=== PATIENT | female | born 1960 | race Caucasian/White ===

== ENCOUNTER 2016-04-04 22:43 | Inpatient (IN) | payer OTHER ==
[~2016-04-04] VITALS: Ht 162.6 cm; Wt 61.7 kg
[2016-04-04 22:50] VITALS: BP 114/85; PULSE 86; RESP 14; O2SAT 95
--- NOTE | 2016-04-04 22:55 | ED.REPORT ---
HPI-General Illness Date of Service Apr 04, 2016 ED Provider: Nursing Notes Stated Complaint: POSS MEDICATION OVERDOSE Chief Complaint: Substance Abuse Allergies: Coded Allergies: No Known Allergies (Unverified , 04/04/16) General Time Seen by MD: 22:55 Physical Exam Vital Signs Vital Signs Date Time Temp Pulse Resp B/P Pulse Ox O2 Delivery O2 Flow Rate FiO2 04/04/16 22:50 37.0 86 14 114/85 95 Room Air Discharge & Departure Referrals: Paulino Velazco MD (PCP) Luis Yarbrough DO Apr 04, 2016 22:55 Joselin Bansal Apr 04, 2016 23:33
[2016-04-04] MEDS ORDERED: 0.9% Sodium Chloride 1,000 ML IV ONE (22:56)
--- NOTE | 2016-04-04 23:24 | ED.REPORT ---
HPI-Overdose/Alcohol Toxicity Date of Service Apr 04, 2016 ED Provider: Delfin Morse MD Patient is a 55 year old female who presents to the ED who presents to the ED with decreased level of consciousness after an intentional lorazepam overdose this evening, with last known normal at 1999. Patient was found by her at 2200 to have fallen out of bed onto the floor, drifting in and out of consciousness. She was incoherent and unable to ambulate on her own. The patient reported taking somewhere between 8-12mg of Lorazepam this evening enroute to the ED. On arrival to the ED the patient is very sedated and is unable to provide any additional history. Her family states that the patient has been stressed recently, due to conversations she has been having with her children. She apparently reported that she had no reason to live. However, she did not want to speak further about why she tried to commit suicide. Her family is not aware of any previous suicide attempts or psychiatric admissions. The patient has access to Lorazepam but does not have a access to any narcotic pain medications. The patient and her are currently staying with her niece, who is also present in the ED. Nursing Notes Stated Complaint: POSS MEDICATION OVERDOSE Chief Complaint: Substance Abuse Nursing Notes Reviewed: Yes Allergies: Coded Allergies: No Known Allergies (Unverified , 04/04/16) General Time Seen by Provider: 23:00 Chief Complaint Drug overdose, Suicidal attempt Modifying Factors: Intentional Hx Obtained From: Spouse Unable to Obtain Hx: Patient condition (sedated) Arrived By: Wheelchair Onset Occurred: 1 - 4 hours ago Symptom Duration: Since onset Recent Healthcare: No recent doctor visit, No recent hospitalization Similar Sx Previous: No Past Medical History Past Medical History kidney stones fibrocystic breasts Past Surgical History none reported Smoking History Unknown if Ever Smoker Social History Other Social History: Good social support, , Local resident Review of Systems Unable to Obtain ROS Patient condition (sedated) Physical Exam Initial Vital Signs Vital Signs (First) Date Time Temp Pulse Resp B/P Pulse Ox O2 Delivery O2 Flow Rate FiO2 04/04/16 22:50 37.0 86 14 114/85 95 Room Air Initial VS: Reviewed, Vital signs normal Neck: Supple, Non-tender, Full range of motion Extremities: Vascular intact, Neuro intact, No swelling Skin: Warm, Dry, No cyanosis General/Constitutional: No acute distress Alertness: Positive: Unresponsive Respiratory / Chest: Breath sounds NL, Breath sounds = bilat, No respiratory distress, No rales, No rhonchi, No wheezing moving air well Cardiovascular: Heart rate NL, Regular rhythm, Heart sounds NL, No murmurs Abdomen: Soft, Non-tender Mental Status: Positive: Pharmacologically sedated, Unresponsive Unable to Evaluate: Positive: Unresponsive Head / Eyes: Atraumatic, Normocephalic Pupils: Positive: Pinpoint ENT: Airway patent, Mucous membranes moist Interpretation & Diagnostics Interpretation & Diagnostics: Urine Tox Dip: Positive for benzodiazepines, all else negative. Lab Results Interpretation Result Diagram: 04/04/16 2338 04/04/16 2338 Test 04/04/16 23:38 White Blood Count 7.5th/mm3 (3.8-10.1) Red Blood Count 4.15mil/mm3 (3.90-5.20) Hemoglobin 12.5g/dL (12.0-15.6) Hematocrit 38.0% (35.0-46.0) Mean Corpuscular Volume 91.6fL (81-100) Mean Corpuscular Hemoglobin 30.1pg (27.0-35.0) Mean Corpuscular Hemoglobin Concent 32.9% (32.0-37.0) Red Cell Distribution Width 13.0% (12.3-15.4) Platelet Count 338bil/L (150-400) Neutrophils (%) (Auto) 51.7% (40-74) Lymphocytes (%) (Auto) 41.7% (14-46) Monocytes (%) (Auto) 4.8% (4-12) Eosinophils (%) (Auto) 1.2% (0-5) Basophils (%) (Auto) 0.5% (0-3) Sodium Level 139mEq/L (134-144) Potassium Level 3.7mEq/L (3.5-5.2) Chloride Level 106mEq/L (97-108) Carbon Dioxide Level 20mmol/L (18-29) Blood Urea Nitrogen 13mg/dL (6-24) Creatinine 0.55mg/dL (0.57-1.00) Estimat Glomerular Filtration Rate 164mL/min (>59) Glucose Level 110mg/dL (60-99) Calcium Level 8.9mg/dL (8.5-10.1) Total Bilirubin 0.2mg/dL (0.0-1.2) Aspartate Amino Transf (AST/SGOT) 18U/L (0-50) Alanine Aminotransferase (ALT/SGPT) 20U/L (0-32) Alkaline Phosphatase 71U/L (25-150) Total Protein 6.7g/dL (6.4-8.4) Albumin 3.7g/dL (3.4-5.0) Salicylates Level < 3.0ug/mL (30-250) Acetaminophen Level < 15.0ug/mL Rx (10-25) Alcohol, Quantitative 10mg/dL (0-10) Lab values outside NL range: no clinical significance. Lab Results Interpretation: No evidence of coingestions ECG Interpretation ECG Interpretation: Sinus rhythm, Rate 74 Time: 23:45 Interpreted by: ED physician Normal ECG Interpretation: No acute ischemic changes Re-Eval/Medical Decision Med Decision/Clinical Course 55-year-old who took 12-21 mg Ativan in apparent suicide attempt. There is no evidence of coingestions. She has a fluctuating level of consciousness but for the most part is soundly asleep with preserved reflexes and no evidence of apnea or desaturation. She will be admitted to [facility] by the hospitalist service. DCR evaluation prior to discharge. Source of Hx: Old records Re-Evaluation/Progress #1: Time of Eval: 23:07 Re-Evaluation/Progress Note: Patient is more responsive and opened her eyes. She is able to answer some questions. She denies taking any medications other than Lorazepam. She does not have any narcotic pain medications. Patient will not clarify why she tried to commit suicide tonight. Re-Evaluation/Progress #2: Time of Eval: 23:33 Re-Evaluation/Progress Note: Patient still appears sedated and now has pinpoint pupils again. Re-Evaluation/Progress #3: Time of Eval: 00:15 Re-Evaluation/Progress Note: Patient is still sedated with pinpoint pupils. She moaned while in the room. Re-Evaluation/Progress #4: Time of Eval: 01:21 Patient Status: Condition improved Re-Evaluation/Progress Note: Rechecked the patient, who remains stable. Patient will need another 6 hours of observation and the hospital does not have a monitered bed at this time. So will keep the patient in the ED. Once she has woken up she will be evaluated by a director of social services. Patient's family understands and agrees with this plan. All questions were addressed. Re-Evaluation/Progress #5: Time of Eval: 02:20 Re-Evaluation/Progress Note: Bed was obtained for the patient upstairs, she will be transported up to the 2nd floor. All questions were addressed. Consultation : Referral / Consult Name: Christin Kim DO Consulted With: Hospitalist Call Returned at: 02:16 Manager Psychology: Will see patient, Agrees with eval, Agrees with plan, Accepts admit Note: Spoke with Dr. Kim, hospitalist, who agrees to accept admit. Counseled Regarding: Diagnosis, Lab results, Need for admission Discharge & Departure Impression: Primary Impression: Intentional lorazepam overdose Encounter type: initial encounter Qualified Code: T42.4X2A - Poisoning by benzodiazepines, intentional self-harm, initial encounter Additional Impression: Decreased level of consciousness Disposition: ADMITTED TO HOSPITAL Discharge Condition All VS Reviewed: Yes Condition: Stable Referrals: Paulino Velazco MD (PCP) Crit Care Except Billable Proc Time Spent: 30-74 minutes Services Performed: Patient management by me, Time spent at bedside, Reviewing test results, Reviewing imaging, Discussing patient care, Documentation in record Scribe Attestation Portions of this note were transcribed by Joselin Bansal. I, Dr. Morse personally performed the history, physical exam and medical decision-making; I reviewed and confirmed the accuracy of the information in the transcribed note. Signed by: Talita Rainey, 04/05/2016 0255 copies to: Paulino Velazco MD, Howard L MD Apr 04, 2016 23:23 Joselin Bansal Apr 04, 2016 23:28
[2016-04-04 23:48] LABS: BASOPHILS % (AUTO) 0.5 % (0-3); EOSINOPHILS % (AUTO) 1.2 % (0-5); MONOCYTES % (AUTO) 4.8 % (4-12); Mean Corpuscular Hemoglobin 30.1 pg (27.0-35.0); Mean Corpuscular Volume 91.6 fL (81-100); NEUTROPHILS % (AUTO) 51.7 % (40-74); Platelet Count 338 bil/L (150-400)
[2016-04-05] VITALS (10 sets, daily range): BP systolic 103–118; BP diastolic 67–85; PULSE 62–86; RESP 14–18; O2SAT 94–97
[2016-04-05] MEDS ORDERED: Polyethylene Glycol (PEG) 17 Gm Powder PO PRN (02:20)
[2016-04-05] MEDS ORDERED: Ondansetron 2 mg/mL 2 mL Inj IVPUSH PRN (02:20)
[2016-04-05] MEDS ORDERED: Alum-Mag Hydrox-Simeth 30 mL Suspension PO PRN (02:20)
--- NOTE | 2016-04-05 05:00 | NUR ---
Admission Pt admitted for suicide attempt when she swallowed 8-12 tabs of ativan. She is sleepy. She does arouse to questions and answers them in full sentences. Cont pulse ox in place. 1:1 sitter at bedside. to stay the night Bed alarm in place No current needs at present. Respirations are regular with adequate depth. Dry cough at times noted Care ongoing
--- NOTE | 2016-04-05 05:27 | PCM.HPMED ---
Subjective Date of Service Apr 05, 2016 Primary Provider: Admitting Physician: Christin Kim DO Primary Care Physician: Isidro Attending Physician: Christin Kim DO Admit Status: From the Emergency Department Chief Complaint: Lorazepam overdose, intentional suicide attempt History of Present Illness: Patient is a 55 y/o F who presented to the ED with decreased level of consciousness after an intentional lorazepam overdose this evening. Patient reported that she had the lorazepam from an old previous script but had not been taking it regularly. Her last known normal at 199904/04/2016. Patient was found by her at 2200 to have fallen out of bed onto the floor, drifting in and out of consciousness. She was incoherent and unable to ambulate on her own. The patient reported taking somewhere between 8-12mg of Lorazepam. On arrival to the ED the patient is very sedated and is unable to provide any additional history. Her family states that the patient has been stressed recently, due to conversations she has been having with her children. She apparently reported that she had no reason to live. After being admitted patient discussed with resident physician how she was " tired of fighting". She says that she was "hoping that she would be in [place] with her grandma by now". When asked to clarify what she meant by feeling tired, patient responded by saying she was tired of dealing with her mom's codependent problems. During interview patient was drifting in and out of consciousness. Patient was very poor historian given her overdose state. Family is not aware of any previous suicide attempts or psychiatric admissions. The patient has access to Lorazepam but does not have a access to any narcotic pain medications. The patient and her are currently staying with her niece, who is also present in the ED. Patient refused to respond to whether or not she was having suicidal ideation. Patient was able to recall her medications when asked. In the ED vital signs were 36.6, pulse 80, pressure 113/68, respiration 17, pulse ox 97% on room air. Chemistry panel: Within normal limits Hemogram: Within normal limits Toxicology: Insignificant Review of Systems: A comprehensive review of systems was conducted and found to be negative except for that mentioned in history of present illness. Allergies Coded Allergies: No Known Allergies (Unverified , 04/04/16) Home Medications Venlafaxine 7.5 mg 3 daily Topamax 3.75 mg twice a day Recently completed a Z-Andrew [facility] kidney stones fibrocystic breasts Surgical History None reported Family History Mother reportedly suffered from codependency Social History Hx Alcohol Use: No Hx Substance Use: No Hx Tobacco Use: No Smoking Status: Unknown if Ever Smoker Living Arrangement: with Family () Exam Vital Signs Vital Sign - Last Date Time Temp Pulse Resp B/P Pulse Ox O2 Delivery O2 Flow Rate FiO2 04/05/16 03:49 36.6 80 17 113/68 97 Room Air Exam General: Sedated, slurring speech, dozing in and out during interview with intermittent levels of consciousness HEENT: NC/AT, eyes PERRLA, EOMI, neck supple no masses no adenopathy no JVD, throat noninjected no erythema Lungs: Bilateral rhonchi Heart: Regular rate and rhythm no murmurs Abdomen: Soft nontender nondistended no rebound no guarding Extremities: Warm, pulses symmetric bilaterally upper and lower extremity Skin: Dry, warm and intact Psychiatric: Flat affect, appears sedated likely secondary to overdose lorazepam , patient fixating on her mother's codependency problems, poor insight, appears depressed, Lab and Diagnostics Result Diagram: 04/04/16 2338 04/04/16 2338 Assessment & Plan This is a 55 y/o F who presented to the ED with decreased level of consciousness after an intentional lorazepam overdose this evening. Her last known normal at 199904/04/2016. The patient reported taking somewhere between 8 -12mg of Lorazepam this evening enroute to the ED. Patient was admitted to the hospital for intentional suicide attempt. In the ED vital signs were 36.6, pulse 80, pressure 113/68, respiration 17, pulse ox 97% on room air. # Intentional suicide attempt, acute, present on admission, active - Patient took 8-12 mg of lorazepam. Reportedly had no access to opiate medications. Patient refused to answer whether or not she was still suicidal, would not answer she had a plan. - Sitter at all times - Psychiatric consult when alert and able to discuss suicide attempt - TSH - support worker consult # Lorazepam overdose, present on admission, active -Secondary to #1 -Patient reportedly had access to her old lorazepam -Supportive care # Acute upper respiratory infection, Bronchitis, present on admission, active - Recently completed a Z-Andrew - Lung bilateral rhonchi - Mucinex - Tessalon - Pro calcitonin - May consider chest x-ray if patients has change in respiration status Chronic problems Patient home medications will need to be reconciled as patient is poor historian and reported medication dosages do not match up with known senior medical director dosages # Depression/anxiety -Reportedly takes venlafaxine # Migraine headaches -Reportedly takes Topamax in the morning and in the evening Disposition: Admitted to in patient service secondary to severity of presenting symptoms, treatment plan, complexity of clinical work up, and risk of adverse events. PCP: Was unable to recall her own primary care physician CODE STATUS: Full code Resuscitation Status: CPR: Attempt Resuscitation Attending Statement The patient was seen and examined together with house staff on 04/05/2016 and I have added additional information to the note above. James Granados DO Apr 05, 2016 04:06 Christin Kim DO Apr 05, 2016 05:57
--- NOTE | 2016-04-05 05:43 | NUR ---
Suicide precautions RN stated to pt, "I am so glad you are safe and alive. Pt responded, "I'm not so sure I am.." RN reiterated that there are many many people who are here to support her. Pt gave a half smile. Care ongoing.
--- NOTE | 2016-04-05 05:46 | NUR ---
MED REC NOT DONE! AWAITING LIST FROM SOFIA WINTERS
[2016-04-05 06:48] LABS: BASOPHILS % (AUTO) 0.5 % (0-3); EOSINOPHILS % (AUTO) 1.9 % (0-5); MONOCYTES % (AUTO) 3.9 % (4-12); Mean Corpuscular Hemoglobin 30.3 pg (27.0-35.0); Mean Corpuscular Volume 91.3 fL (81-100); NEUTROPHILS % (AUTO) 45.9 % (40-74); Platelet Count 320 bil/L (150-400)
[2016-04-05] MEDS ORDERED: VENL-57 PO (12:39)
[2016-04-05] MEDS ORDERED: TOPI-59 PO (12:40)
[2016-04-05] MEDS ORDERED: AMPH20TA5 PO (12:42)
--- NOTE | 2016-04-05 13:46 | PCM.PNMED ---
Subjective Date of Service Apr 05, 2016 Subjective she is more awake. She denies any pain cough or dyspnea. She had a cold for last 3 weeks and still has a mild persistent dry cough. No fevers or chills. No active rhinorrhea. She has no abdominal pain or anorexia nausea or diarrhea. She states she took lorazepam 1 mg tablets 20-30 pills last night with intention to kill herself. She notes one previous attempt distantly. When asked if she is still suicidal she states that she cannot say yes or now today. She did recently relocated from [place] and is staying with her significant other. Apparently they have been in the process of trying to reconstruct the relationship. Exam Vital Signs Vital Sign - Last Date Time Temp Pulse Resp B/P Pulse Ox O2 Delivery O2 Flow Rate FiO2 04/05/16 09:57 66 04/05/16 09:17 36.7 14 103/70 95 Room Air Intake and Output 04/04/16 04/04/16 04/05/16 Cumulative From/Thru 15:00 23:00 07:00 04/04/16 22:50 - 04/05/16 05:29 Intake Total 0 ml 0 ml Output Total 0 ml 0 ml Balance 0 ml 0 ml Intake Oral 0 ml 0 ml Output Urine Total 0 ml 0 ml # Bowel Movements 0 0 Exam [place] to 3, flat affect. Depressed in appearance Normal skull Anicteric sclerae. Neck supple. Lungs are clear left. Heart is regular without murmur. Abdomen is soft. Extremities are free of edema good pedal pulses. Multiple tattoos. IVs and Medications Medications Reviewed: Medications were reviewed in detail Lab and Diagnostics Result Diagram: 04/05/1628 04/05/16627 Assessment & Plan This is a 55 y/o F who presented to the ED with decreased level of consciousness after an intentional lorazepam overdose this evening. Her last known normal at 199904/04/2016. The patient reported taking somewhere between 8 -12mg of Lorazepam this evening enroute to the ED. Patient was admitted to the hospital for intentional suicide attempt. In the ED vital signs were 36.6, pulse 80, pressure 113/68, respiration 17, pulse ox 97% on room air. 1. Intentional suicide attempt, acute, present on admission, active - Patient took 8-12 mg of lorazepam. Reportedly had no access to opiate medications. Patient refused to answer whether or not she was still suicidal, would not answer she had a plan. - Sitter at all times - Psychiatric consult when alert and able to discuss suicide attempt - TSH - coal chute worker consult for mental health evaluation. The patient is medically clear as of 1300 on April 05. In her evaluation she will likely need psychiatric consultation for consideration of inpatient treatment of depression. Depending on the outcome of the social work mental health evaluation the patient will require a psychiatry consultation likely in the morning of April 06. 2. Lorazepam overdose, present on admission, active -Secondary to #1 -Patient reportedly had access to her old lorazepam -Supportive care, medically clear at this point. 3. Acute upper respiratory infection, Bronchitis, present on admission, active - Recently completed a Z-Andrew - Lung bilateral rhonchi - Mucinex - Tessalon - Pro calcitonin - May consider chest x-ray if patients has change in respiration status, will add a viral PCR. 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 PCP: Was unable to recall her own primary care physician CODE STATUS: Full code Pain Evaluation: Adequate Pain Control Resuscitation Status: CPR: Attempt Resuscitation Time spent 25 minutes Graham Engel MD Apr 05, 2016 13:46
--- NOTE | 2016-04-05 15:25 | NUR ---
Social Work: Attempted Mental Health Assessment Data & Assessment: Heat Treatment Technician attempted to meet with patient to complete Mental Health Assessment, but the patient was asleep and unable to answer Social Workers questions. Patients and daughter Nidia were at bedside. Patients stated that the patient has been in [place] since January and was planning to return to her sisters home but her sister notified her that she did not want her to return. Patients stated that the patient has been stating to him that she felt worthless and did not want to be here. Patients also reported that the patient got into an argument with her sister and daughters the night that she attempted to commit suicide. deli worker will attempt to complete mental health assessment with patient once she is awake. SW will continue to follow. Plan: SW will follow patient and complete mental health assessment once patient is able to stay awake and answer questions. Ivy Vance, WILL, ACM
--- NOTE | 2016-04-05 16:29 | NUR ---
Suicidal Thoughts Patient stated she took 20-30 lorazepam last night because she" was ready to say bye bye and end it all". When asked if she was still having suicidal thoughts she replied" oh yes definitely I will try again when I leave here." Patient is cooperative and pleasant. Sitter at bedside for patient safety.
[2016-04-06 05:08] VITALS: BP 108/73; PULSE 72; RESP 16; O2SAT 95
--- NOTE | 2016-04-06 06:34 | NUR ---
Suicide Precautions/ VSS/ No Tele/ 1:1 Sitter Pt states that she doesnt have a plan to hurt herself right now, but is still not happy with her current situation and is depressed. Pt very drowsy during the night, but easily arousable. VS stable and afebrile. No Tele. No c/o chest pain or other discomfort all night. Very unsteady on her feet, 1 person assist to the BSC. 1:1 sitter in room at bedside all night for safety, Joshua bed alarm activated also for safety.
[2016-04-06 08:38] VITALS: BP 94/61; PULSE 82; RESP 16; O2SAT 94
--- NOTE | 2016-04-06 12:31 | PCM.PNMED ---
Subjective Date of Service Apr 06, 2016 Subjective Patient was seen and examined at bedside. The patient currently states that she is not suicidal at this moment, but tends to hesitate when answering this question. Patient denies that she has a plan at this time. Overnight nursing reported that the patient was extremely lethargic. Exam Vital Signs Vital Sign - Last Date Time Temp Pulse Resp B/P Pulse Ox O2 Delivery O2 Flow Rate FiO2 04/06/16 08:38 37.2 82 16 94/61 94 Room Air Intake and Output 04/05/16 04/05/16 04/06/16 Cumulative From/Thru 15:00 23:00 07:00 04/04/16 22:50 - 04/06/16 06:09 Intake Total 100 ml 100 ml Output Total 400 ml 400 ml Balance -300 ml -300 ml Intake Oral 100 ml 100 ml Output Urine Total 400 ml 400 ml # Voids 1 1 # Bowel Movements 0 0 Exam Physical Exam: GEN: Patient was awake, alert, responding appropriately to questions HEENT: Pupils dilated but round equally reactive to light, EOMI, Neck soft supple, trachea midline, nomocephalic/atraumatic CV: +S1/S2, RRR, no murmurs auscultated Respiratory: CTAB, no wheezes, rales, rhonchi GI: +bowel sounds x4, soft, compressible, non TTP EXT: no c/c/e Neuro: CN II-XII grossly intact Psych: mood and affect were depressed IVs and Medications Medications Reviewed: Medications were reviewed in detail Medications Current Medications Al Hydrox/Mg Hydrox/Simethicone 30 ml Q6H PRN PO; Start 04/05/16 at 02:20 Ondansetron HCl 4 to 8 mg Q4H PRN IVPUSH; Start 04/05/16 at 02:20 Senna 17.2 mg BID PRN PO; Start 04/05/16 at 02:20 Polyethylene Glycol 17 gm DAILY PRN PO; Start 04/05/16 at 02:20 Lab and Diagnostics Result Diagram: 04/05/1662704/05/16627 Assessment & Plan This is a 55 y/o F who presented to the ED with decreased level of consciousness after an intentional lorazepam overdose this evening. Her last known normal at 199904/04/2016. The patient reported taking somewhere between 8 -12mg of Lorazepam enroute to the ED. Patient was admitted to the hospital for intentional suicide attempt. In the ED vital signs were 36.6, pulse 80, pressure 113/68, respiration 17, pulse ox 97% on room air. Intentional suicide attempt, acute, present on admission, active - Patient took 8-12 mg of lorazepam. Reportedly had no access to opiate medications. 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 The patient is medically clear as of 1300 on April 05. In her evaluation she will likely need psychiatric consultation for consideration of inpatient treatment of depression. ?Lorazepam overdose, present on admission, active -Secondary to #1 -Patient reportedly had access to her old lorazepam however on her urine tox screen came back negative for benzodiazepines -Supportive care, medically clear at this point. Acute upper respiratory infection, Bronchitis, present on admission, active - Recently completed a Z-Andrew - Lung bilateral rhonchi - Mucinex - Tessalon - Pro calcitonin within normal range 0.05 - May consider chest x-ray if patients has change in respiration status currently stable - Viral PCR negative Chronic problems Depression/anxiety -Reportedly takes venlafaxine Migraine headaches -Reportedly takes Topamax in the morning and in the evening Disposition: Patient will be evaluated by social work today. One delinquency prevention social worker determines whether or not the patient needs furthers inpatient psychiatric evaluation will consult psych. Patient is currently stable. The patient reportedly took 20-30 pills of 0.5 mg of Ativan however the patient's tox screen is currently negative. Questionable if this is either an attempt of suicide or cry for help due to an exacerbation of the patient's chronic depression. A discussion was held with the patient's Francisco is states that the patient has been under a lot of stressors from her family and states that his expressed to him that she would prefer to go to an inpatient psych facility. We will follow up with social work today to see if the patient qualifies and then follow-up with a psych consult if the patient qualifies. VTE Prophylaxis: SCDs Resuscitation Status: CPR: Attempt Resuscitation Time spent Greater than 35 minutes Nat Ferguson DO Apr 06, 2016 11:52
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
--- NOTE | 2016-04-06 16:35 | NUR ---
Social Work: Discharge Data & Assessment: Chief Of Safety And Protection received prior authorization for psychiatric inpatient hospitilazation from Carlos Quispe at [facility]. Authorization # [id number]. Dr. Goodwin will be the admitting physician and community mental health social worker notified the charge nurse, Diana, on the psychiatric unit. Chief Of Safety And Protection pnotified patient's attending physician. SW will continue to follow. Plan: Patient is likely to discharge to inpatient psychiatric unit. Ivy Vance LMSW, OMARI
[2016-04-06 16:53] VITALS: BP 132/86; PULSE 91; RESP 18; O2SAT 96
[2016-04-06] MEDS: Venlafaxine XR 37.5 mg ER24 Capsule PO SCH (18:00)
--- NOTE | 2016-04-06 18:02 | NUR ---
Transfer pt ordered for transfer to Mental Health unit. pt and family made aware and agreeable. pt transport to [facility] via wheelchair with all belongings at about 1800.
--- NOTE | 2016-04-06 18:05 | NUR ---
Nurses Admission Note 55 year old voluntary female transferred from [facility] after ingesting an overdose of Ativan and found overly sedated at home by her and was taken to our ER. Patient admitted that the episode was in an effort to since she has been extremely depressed about her husbands' drinking and "lies" that her sister has told to her children. Patient had been living in [place] on her sisters' property for 3 years, recently returned to her here in [place]. Patient presented alert and oriented. Her speech was halting with poor eye contact. She broke into tears relating events that lead up to her overdosing. Patient contracted for safety. She stated she has been on Adderall for years,Effexor and Topamax but the dosages were incorrect. Patient stated she would have her bring in the vials from home tomorrow. Patient recently completed a round of Zithromax for Bronchitis. She continues to have a loose non-productive cough. She c/o poor sleep. Medications were ordered for the cough an sleep. Patient will be monitored q 15min. for safety and support.
[2016-04-06] MEDS ORDERED: guaiFENesin DM 200-20 mg/10 mL Syrup PO PRN (21:00)
[2016-04-06] MEDS ORDERED: Benzocaine-Menthol Lozenge 2/Pkg PO PRN (21:00)
--- NOTE | 2016-04-07 06:02 | NUR ---
nursing, nights, 11-7 s/o- has appeared to sleep after 2300 during q 15 minute assessments. a- no apparent distress. p- monitor behavior/emotional state, quality, times and amount of sleep, use and effect of medication. ruth ann
[2016-04-07] MEDS: Venlafaxine XR 37.5 mg ER24 Capsule PO SCH (10:40)
[2016-04-07] MEDS ORDERED: Venlafaxine XR 37.5 mg ER24 Capsule PO ONE (11:05)
[2016-04-07] MEDS: buPROPion SR 150 mg ER12 Tablet PO SCH (16:26)
--- NOTE | 2016-04-07 17:41 | NUR ---
Nursing Note Lance Deepa Nursing Notes [id number] S: My medications are not working yet, they are not straightened out O: Pt spent a lot of time isolated in her room. Had to encourage pt to come out of her room and eat her lunch, she did not eat breakfast. A: Pt appears to be a bit disheveled today, sleeping a lot, flat affect, cooperative with care. P: Monitor for safety and response to treatment. Follow plan of care. for safety/response to treatment. Follow PRNs
--- NOTE | 2016-04-07 20:06 | NUR ---
Observations 0900 to 2130 Pt affect and mood was labile and isolative. Pt speech was good and eye contact was poor. Pt declined to attended group and unit activities. Pt was in her room and in bed most of the day. Pt attended meals in D.R. and declined breakfast, ate 50% of lunch and 100% of dinner. Pt maintained behavior for the shift. Pt was polite, pleasant and cooperative. Pt had several phone calls. Pt was observed every 15 minutes throughout the shift as ordered.
--- NOTE | 2016-04-07 21:05 | NUR ---
Nurses PRN Patient requested and received Vistaril 50mg and Ambien 5mg for anxiety and sleep,night shift supervisor to assess response.
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
--- NOTE | 2016-04-08 05:25 | NUR ---
nursing, nights, 11-7 s/o- has appeared to sleep after 2200 during q 15 minute assessments. a- no apparent distress. p- monitor behavior/emotional state, quality, times and amount of sleep, use and effect of medication. ruth ann
--- NOTE | 2016-04-08 05:50 | NUR ---
Obsrvations from [id number] Pt had two visitors this evening and seemed to enjoy that but went straight to her room after they left. Pt appeared asleep at 2200 and has remained asleep throughout the night. Pt has been monitored every 15 minutes as directed.
[2016-04-08] MEDS: Venlafaxine XR 75 mg ER24 Capsule PO SCH (07:56)
[2016-04-08] MEDS: buPROPion SR 150 mg ER12 Tablet PO SCH (07:56)
[2016-04-08 09:48] VITALS: BP 96/69; PULSE 84; RESP 16
--- NOTE | 2016-04-08 14:40 | NUR ---
Nursing Day Shift- S- "The depression is less. It's anxiety and the ADHD that gets to me. My family is really dysfunctional. Really it's my sister..." O- Pt. reported poor sleep last PM. She was awake, dressed and social at breakfast and then until lunch. After lunch she rested in her room. Pt. reported decreased depression. Pt. was able to talk of and process recent family stressors. She denied suicidal thoughts. A- Anxiety, Mood lability, situational stressors. P- Lamictal dose was confirmed with Pt's pharmacy in [place]. See med Rec. notified. Cont. BHTP.
[2016-04-08] MEDS ORDERED: Amphetamines (Mixed) 20 mg Tablet PO PRN (16:05)
--- NOTE | 2016-04-08 17:43 | NUR ---
[facility] Day Shift Pt maintained behavioral control throughout the shift. Pt affect appears mostly bright, but is occasionally flat. Pt spends most of the shift interacting with peers in the dining room, reading in her room, and engaging in unit activities. Pt is pleasant with staff and peers when active on the unit. Pt attended community meeting and participated in unit group activities throughout the shift. Pt attended all meals and ate approx 75% of all meals.
--- NOTE | 2016-04-08 18:46 | PCM.PNPSY ---
Subjective Date of Service Apr 08, 2016 Subjective The patient reports that she is feeling somewhat better but if she "thinks about it the depression comes back." She appeared somewhat tearful when saying this. She stated that she is having difficulty concentrating and if it does not improve by tomorrow she would like to take a half dose of Adderall. No side effects, reports that she is tolerating restart of medication. The patient thinks that she may be ready for discharge over the weekend but is not sure. Sleep: 7.5 hours, "tossed and turned and " Appetite: "okay, not a huge appetite." Suicidal and homicidal ideation: denies Auditory hallucinations: denies Visual hallucinations: denies Other Psychotic Symptoms: N/A Anxiety: "Difficulty finding what to do." Depression: "Better" Current Medications Current Medications Bupropion HCl 150 mg DAILYWM PO Last administered on 04/08/16 07:56; Admin Dose 150 MG; Start 04/07/16 at 15:50 Dexbrompheniramine/ Guaifenesin 10 ml Q4H PRN PO Last administered on 04/07/16 21:04; Admin Dose 10 ML; Start 04/06/16 at 21:00 Hydroxyzine Pamoate 50 mg Q4H PRN PO Last administered on 04/07/16 21:04; Admin Dose 50 MG; Start 04/06/16 at 21:00 Topiramate 25 mg BID PO Last administered on 04/07/16 10:40; Admin Dose 25 MG; Start 04/06/16 at 20:30; Stop 04/07/16 at 15:51; Status DC Topiramate 50 mg ONCE ONCE PO Last administered on 04/07/16 11:30; Admin Dose 50 MG; Start 04/07/16 at 11:05; Stop 04/07/16 at 11:06; Status DC Topiramate 75 mg DAILY PO Last administered on 04/08/16 07:55; Admin Dose 75 MG ; Start 04/08/16 at 08:30; Stop 04/08/16 at 15:26; Status DC Venlafaxine HCl 75 mg DAILYWM PO Last administered on 04/08/16 07:56; Admin Dose 75 MG; Start 04/08/16 at 08:00 Venlafaxine HCl 75 mg ONCE ONCE PO Last administered on 04/07/16 11:30; Admin Dose 75 MG; Start 04/07/16 at 11:05; Stop 04/07/16 at 11:06; Status DC Zolpidem Tartrate GIVE 5MG; IF INEFFECT... HS PRN PO Last administered on 21:04; Admin Dose 5 MG; Start 04/06/16 at 20:58 Mental Status Exam Appearance: Neat/well groomed Attitude: Pleasant, Cooperative Behavior: No unusual behavior, Tearful (as above) Affect: Well Modulated/Appropriate Mood: Dysthymic Thought Process/Associations: Logical/Sequential, Goal Directed Speech Production: Normal Speech Rate: Normal Speech Articulation: Normal Thought Content: Appropriate Danger to Self/Suicidal Ideati: None Danger to Others: None Hallucinations: Auditory (Denies), Visual (Denies) Consciousness: Alert Orientation: Person, Place, Date, Situation Memory: Grossly Intact Estimate Intellectual Function: Average Basis for IQ estimate: Awareness current events, Word use/vocabulary, Educational history, Employment history Attention/Concentration & Cogn: Grossly Intact Insight: Good Judgement: Good Result Diagram: 04/05/1662704/05/16627 Mental Health Plan Patient is 55 year old female with history of depression and multiple losses/ setbacks who presents with worsening depression and suicidal ideation. The patient appears to be responding well to the addition of Wellbutrin. She is not experiencing any side effects from the taper of Effexor. The patient reports still having some distractibility. [place] AXIS I: Major depression, recurrent ADD, by patient report. AXIS II: Defer AXIS III: See PMHx AXIS IV: moderate AXIS V: GAF 35 Treatments 1. The patient is admitted to the inpatient unit and will be provided a safe and secure environment. 2. The patient is denying current active suicidality and is not in need of a one-to-one at this time. She is agreeing to notify us should he have any acute suicidal or homicidal thoughts. 3. The patient is encouraged to participate with group and milieu activities. 4. The patient will be seen by the treatment team on a daily basis to assess symptoms, side effects and response to treatment. 5. Will continue Effexor 75 mg for now and continue slow taper. 6. Continue bupropion 150 mg daily and titrate as tolerated. 7. Adderall 10 mg daily as needed for distractibility. 8. Anticipated length of stay 3-5 days. Dimitry Goodwin MD Apr 08, 2016 18:46
--- NOTE | 2016-04-08 22:24 | NUR ---
NURSING NOTE [id number] Orientation= x4 Mood= "okay" Affect= flat to neutral, smiling more as shift went on Behavior= keeping to her room first half of shift, reading a book. She socialized w/peers during dinner. Watched TV w/peers after dinner. Her visited. Thought processes= logical and linear, denies SI/HI/AH/VH. Still endorses "some" depression but expressed hope that her medication changes will continue to help improve her mood. PRNs Vistaril @ Ambien 5 mg @
--- NOTE | 2016-04-09 04:36 | NUR ---
Nursing Note Noc Pt asleep upon arrival to unit. Sleep time noted 2300 with 6 hr uninterrupted sleep. No PRN's given and Pt currently asleep on Q15 min safety checks per protocol. No distress noted , WCTM sleep, safety, behavior
[2016-04-09] MEDS: Venlafaxine XR 75 mg ER24 Capsule PO SCH (07:56)
[2016-04-09] MEDS: buPROPion SR 150 mg ER12 Tablet PO SCH (07:57)
[2016-04-09] MEDS ORDERED: guaiFENesin DM 100-10 mg/5 mL 118 mL Syrup PO PRN (11:15)
[2016-04-09] MEDS ORDERED: buPROPion SR 100 mg ER12 Tablet PO ONE (12:00)
[2016-04-09] MEDS: guaiFENesin DM 200-20 mg/10 mL Syrup PO PRN ×2 (12:31→19:53)
--- NOTE | 2016-04-09 12:53 | NUR ---
Nursing Day Shift- S- I slept longer, but I still woke up a bunch." O- Pt. was awake for breakfast. She reported improved sleep, but multiple walkings. Pt. requested and received Mixed amphetamines 10 mg at 0830. She denied thoughts of suicide and rated her anxiety as 4/10. Pt. showered and groomed after breakfast. A- Appears less withdrawn and sad then yesterday. P- Cont. BHTP. Possible discharge Monday.
--- NOTE | 2016-04-09 15:02 | NUR ---
Direct Customer Service Representative/Counselor: S: "I'm feeling good today. I slept a longer stretch of time last night." O: Patient slept 7+ hours last night as per staff. She denies S/I and H/I. She denies auditory and visual hallucinations. Depression is 0/10 and anxiety is "good." When asked her mood, patient stated, "I feel like my old self." The psychiatrist did Body Focused Imagery with patient. A: Patient is cooperative, improving, hopeful. P: Follow care plan, coordinate with out-patient providers.
[2016-04-09 16:45] VITALS: BP 108/68; PULSE 82; RESP 15
[2016-04-09] MEDS: Albuterol HFA 60 Puff 8 Gm Inhaler INHALATION PRN ×2 (17:06→21:26)
--- NOTE | 2016-04-09 18:25 | NUR ---
Observations 0700 to 1900 Pt maintained behavioral control throughout the shift. Pt attended community activities throughout the day, and set goal in morning meeting to meditate during day. Pt was on unit for entire day, most talking to peers and watching TV. Pt is cooperative with staff and seeks interaction. Pt had two visits with in evening that seemed to go well. Pt ate 75-100% of meals and was observed every 15 minutes as ordered.
--- NOTE | 2016-04-09 21:57 | PCM.PNPSY ---
Subjective Date of Service Apr 09, 2016 Subjective The patient reports that she is feeling "better, like my old self." The patient reported that she was still having difficulty with concentration and took lower dose Adderall. She reports no side effects from the reduction in venlafaxine. We discussed further titrating bupropion and decreasing venlafaxine , and patient agreeable. Patient assisted with relaxation exercises which she found helpful. No side effects. The patient thinks that she may be ready for discharge tomorrow. Patient reports some cough and congestion. End expiratory wheezes left lower lobe and right lower and middle lobes. Sleep: 7+ hours, "better " Appetite: "Coming back." Suicidal and homicidal ideation: denies Auditory hallucinations: denies Visual hallucinations: denies Other Psychotic Symptoms: N/A Anxiety: "Good" Depression: "Denies" Current Medications Current Medications Albuterol 2 puff Q4H PRN INHALATION Last administered on 04/09/16 21:26; Admin Dose 2 PUFF; Start 04/09/16 at 11:15 Amphetamine Aspartate/ Amphetam Sulf 10 mg DAILY PRN PO Last administered on 08:45; Admin Dose 10 MG; Start 04/08/16 at 16:05 Bupropion HCl 100 mg DAILYWL ONCE PO Last administered on 04/09/16 12:23; Admin Dose 100 MG; Start 04/09/16 at 12:00; Stop 04/09/16 at 12:01; Status DC Dexbrompheniramine/ Guaifenesin 5 ml Q4H PRN PO Last administered on 04/09/16 19:53; Admin Dose 5 ML; Start 04/09/16 at 11:50 Topiramate 75 mg BID PO Last administered on 04/09/16 21:23; Admin Dose 75 MG; Start 04/08/16 at 20:30 Topiramate 75 mg DAILY PO Last administered on 04/08/16 07:55; Admin Dose 75 MG ; Start 04/08/16 at 08:30; Stop 04/08/16 at 15:26; Status DC Venlafaxine HCl 75 mg DAILYWM PO Last administered on 04/09/16 07:56; Admin Dose 75 MG; Start 04/08/16 at 08:00; Stop 04/09/16 at 11:16; Status DC Mental Status Exam Vital Signs Vital Signs Date Time Temp Pulse Resp B/P Pulse Ox O2 Delivery O2 Flow Rate FiO2 04/09/16 16:45 36.5 82 15 108/68 Appearance: Neat/well groomed Attitude: Pleasant, Cooperative Behavior: No unusual behavior Affect: Well Modulated/Appropriate Mood: Euthymic Thought Process/Associations: Logical/Sequential, Goal Directed Speech Production: Normal Speech Rate: Normal Speech Articulation: Normal Thought Content: Appropriate Danger to Self/Suicidal Ideati: None Danger to Others: None Hallucinations: Auditory (Denies), Visual (Denies) Consciousness: Alert Orientation: Person, Place, Date, Situation Memory: Grossly Intact Estimate Intellectual Function: Average Basis for IQ estimate: Awareness current events, Word use/vocabulary, Educational history, Employment history Attention/Concentration & Cogn: Grossly Intact Insight: Good Judgement: Good Result Diagram: 04/05/1662704/05/16627 Mental Health Plan Patient is 55 year old female with history of depression and multiple losses/ setbacks who presents with worsening depression and suicidal ideation. The patient appears to be responding well to the addition of Wellbutrin. She is not experiencing any side effects from the taper of Effexor. The patient reports ongoing distractibility. We discussed further titration of Wellbutrin and taper of Effexor. Patient responded well to albuterol and dextromethorphan in the past. [place] AXIS I: Major depression, recurrent ADD, by patient report. AXIS II: Defer AXIS III: See PMHx AXIS IV: moderate AXIS V: GAF 40 Treatments 1. The patient is admitted to the inpatient unit and will be provided a safe and secure environment. 2. The patient is denying current active suicidality and is not in need of a one-to-one at this time. She is agreeing to notify us should he have any acute suicidal or homicidal thoughts. 3. The patient is encouraged to participate with group and milieu activities. 4. The patient will be seen by the treatment team on a daily basis to assess symptoms, side effects and response to treatment. 5. Will decrease Effexor to 37.5 mg for now and continue slow taper. 6. Continue bupropion 150 mg daily and add additional 100mg at lunch, if tolerated, increase AM dose to 300mg. 7. Adderall 10 mg daily as needed for distractibility. 8. Anticipated length of stay 3-5 days. 9. Albuterol and dextromethorphan for cough. Dimitry Goodwin MD Apr 09, 2016 21:57
--- NOTE | 2016-04-09 22:10 | NUR ---
NURSING NOTE [id number] Mood= "I'm doing good" Affect= bright, friendly Behavior= pt.'s visited, pt. visible out in the dining room for much of the evening. C/O of upset stomach at 17:00 and later had one episode of diarrhea. No nausea or vomiting. Pt suspects it may have been caused by some fruit she ate. Med compliant. Thought processes= logical, linear, reports her depression is improving and she is feeling "a lot better". Reports some anxiety. No AH/VH/SI/HI. PRNs: Maalox 17:06 Ventolin 17:06 and HS Robitussin 19:53 Vistaril 21:23 Ambien 5 mg 21:23
--- NOTE | 2016-04-10 01:27 | NUR ---
Observations 1900 to 0700 Pt was in her room for most of the night. Pt did come out briefly to ask for some meds. talib jerry appeared asleep at 23:30 and was observed every 15 minutes through the night as directed.
--- NOTE | 2016-04-10 06:26 | NUR ---
Sleep Adequate sleep through the night with no noted distress or awakening per protocol checks. She has remained asleep since 2330 for over 6.5 hours sleep.
[2016-04-10] MEDS ORDERED: Venlafaxine XR 37.5 mg ER24 Capsule PO SCH (08:00)
[2016-04-10] MEDS ORDERED: Amphetamines (Mixed) 10 mg Tablet PO PRN (08:16)
[2016-04-10] MEDS: buPROPion SR 150 mg ER12 Tablet PO SCH (08:33)
[2016-04-10] MEDS: guaiFENesin DM 200-20 mg/10 mL Syrup PO PRN (09:23)
[2016-04-10] MEDS: Albuterol HFA 60 Puff 8 Gm Inhaler INHALATION PRN (09:23)
--- NOTE | 2016-04-10 11:43 | PCM.DIMED ---
Discharge Instructions Date of Service Apr 10, 2016 Dates of Hospitalization Apr 05, 2016 at 02:25 Discharge Diagnosis Discharge Diagnosis AXIS I: Major Depressive Disorder, severe, recurrent Attention Deficit Disorder by patient report. AXIS II: Defer AXIS III: None acute AXIS IV: Moderate AXIS V: GAF 50 Test Results CBC Test 04/05/16 06:28 White Blood Count 6.4th/mm3 (3.8-10.1) Red Blood Count 4.16mil/mm3 (3.90-5.20) Hemoglobin 12.6g/dL (12.0-15.6) Hematocrit 38.0% (35.0-46.0) Mean Corpuscular Volume 91.3fL (81-100) Mean Corpuscular Hemoglobin 30.3pg (27.0-35.0) Mean Corpuscular Hemoglobin Concent 33.2% (32.0-37.0) Red Cell Distribution Width 13.2% (12.3-15.4) Platelet Count 320bil/L (150-400) Neutrophils (%) (Auto) 45.9% (40-74) Lymphocytes (%) (Auto) 47.6% (14-46) Monocytes (%) (Auto) 3.9% (4-12) Eosinophils (%) (Auto) 1.9% (0-5) Basophils (%) (Auto) 0.5% (0-3) CMP Test 04/04/16 23:38 04/05/16 06:28 Total Bilirubin 0.2mg/dL Aspartate Amino Transf (AST/SGOT) 18U/L Alanine Aminotransferase (ALT/SGPT) 20U/L Alkaline Phosphatase 71U/L Total Protein 6.7g/dL Albumin 3.7g/dL Sodium Level 142mEq/L Potassium Level 4.0mEq/L Chloride Level 110mEq/L Carbon Dioxide Level 18mmol/L Blood Urea Nitrogen 11mg/dL Creatinine 0.48mg/dL Estimat Glomerular Filtration Rate 192mL/min Glucose Level 95mg/dL Calcium Level 9.2mg/dL Procalcitonin 0.05ng/mL Thyroid Stimulating Hormone (TSH) 1.570uIU/mL Diet No restrictions Activity No restrictions Patient Instructions Should you have any thoughts of harming yourself or others, please call the crisis line, your provider, 911, or go to the nearest Emergency Department. Do not change or discontinue your medications without discussing with your provider. You have been given a prescription for 30 days supply of your medication except for Effexor XR. For Effexor XR, take 37.5mg daily for one week then 1 tablet every other day for 2 weeks. Try to avoid using Adderall for the next 1-2 weeks to see whether you benefit from the increased dose of Wellbutrin. Discuss your results with your provider who may recommend a decrease in the dose to 150mg daily. Call to verify the time and location of your appointment. Follow-up plan Dr. Raegan Panda MD at on 05/09/16 at 01:30pm [facility] [address] [place] [address] Dimitry Goodwin MD Apr 10, 2016 11:43
[2016-04-10] MEDS ORDERED: buPROPion XL 150 mg ER24 Tablet PO ONE (11:45)
[2016-04-10] MEDS ORDERED: BUPR300T51 PO (11:53)
[2016-04-10] MEDS ORDERED: VENL-57 PO (11:53)
[2016-04-10] MEDS ORDERED: TOPI-59 PO (11:53)
[2016-04-10] MEDS ORDERED: HYDR50CA3 PO (11:53)
[2016-04-10] MEDS ORDERED: ZLP5T PO (11:53)
--- NOTE | 2016-04-10 13:32 | NUR ---
Nursing Discharge- Pt. was discharged to home at 1312 as planned. Pt's prescriptions were faxed to [facility] in [place] as she had requested. She had woken for breakfast and eat well. At group Pt. set a goal of discharging today. She denied thoughts of self harm and spoke of her future plans. Pt. expressed an understanding of her discharge and follow up plans. She requested and received mixed amphetamines 10 mg. Robitussin CM and her albuterol inhaler at 0840. Pt. appeared bright, social and future oriented. Her Safety plan was completed.
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
[2016-04-11] MEDS ORDERED: buPROPion XL 300 mg ER24 Tablet PO SCH (08:30)
== END 2016-04-10 13:10 | disposition home or self-care (01) | DRG 885 ==
LOC: SED 22:43 → PCC 04-05 02:25 → MHC 04-06 17:59
PROVIDERS: ADMIT Psychiatry & Neurology Psychiatry; ATTEND Psychiatry & Neurology Psychiatry
DX: F33.2 Major depressive disorder, recurrent severe without psychotic features (principal); T42.4X2A Poisoning by benzodiazepines, intentional self-harm, initial encounter; Y92.013 Bedroom of single-family (private) house as the place of occurrence of the external cause; J20.9 Acute bronchitis, unspecified; F41.9 Anxiety disorder, unspecified; G43.909 Migraine, unspecified, not intractable, without status migrainosus

== ENCOUNTER 2016-10-21 14:52 | Emergency (ER) | payer OTHER ==
[~2016-10-21] VITALS: Ht 162.6 cm; Wt 66.8 kg
[~2016-10-21 14:52] MED LIST: AMPH20TA5 PO; BUPR300T51 PO; HYDR50CA3 PO; TOPI-59 PO; VENL-57 PO; ZLP5T PO
[2016-10-21 14:55] VITALS: BP 147/93; PULSE 80; RESP 18; O2SAT 97
--- NOTE | 2016-10-21 15:13 | ED.REPORT ---
HPI-Neck Pain Free Text HPI Notes Oct 21, 2016 ED Provider: Nelson Anaya MD Pt is a generally healthy 56 y/o female presenting to the ED c/o neck pain onset yesterday. She began experiencing left neck pain yesterday and today noticed a mass of her left lateral neck which is painful and therefore restricting her range of motion. She denies dental pain, dysphagia, sore throat , fever, chills, SOB, N/V, weight loss. She has no history of cancer or recent travel. There is an extensive family history of cancer. She is currently only take Bupropion. She is a former smoker who quit 4 years ago. There has been no significant trauma or injury. She does regular self breast check exams and has not noticed any lumps. Nursing Notes Stated Complaint: NECK PAIN Chief Complaint: General Complaint Nursing Notes Reviewed: Yes Allergies: Coded Allergies: codeine (Verified Allergy, Intermediate, 10/21/16) Scheduled Amphet Asp/Amphet/D-Amphet (Adderall) 20 Mg Tablet 20 MG PO DAILY Bupropion ER (Wellbutrin XL) 300 Mg Tab.er.24h 300 MG PO DAILY Topiramate (Topiramate) 25 Mg Tablet 75 MG PO BID Venlafaxine ER (Venlafaxine ER) 37.5 Mg Cap.er.24h 37.5 MG PO DAILY Take 1 tablet daily for 1 week then 1 tablet every other day for 2 weeks then stop Scheduled PRN Cyclobenzaprine (Cyclobenzaprine) 5 Mg Tablet 5 MG PO TID PRN PRN Spasm Hydroxyzine Pamoate (HydrOXYzine Pamoate) 50 Mg Capsule 50 MG PO BID PRN PRN For Anxiety or Agitation Zolpidem (Ambien) 5 Mg Tablet 5 MG PO HS PRN PRN Insomnia General Time Seen by Provider: 15:15 Chief Complaint Neck pain Hx Obtained From: Patient Arrived By: Walk-in Sudden in Onset?: No Onset Occurred: Yesterday Symptom Duration: Since onset Location: : Lateral neck left Quality: Painful Severity: Current: Moderate Severity: Maximum: Moderate Recent Healthcare: No recent doctor visit, No recent hospitalization Similar Sx Previous: No Past Medical History Past Medical History Hx kidney stones Fibrocystic breasts Hx UTI Hx of suicide attempt by intentional ativan overdose Anxiety Major depression Past Surgical History none reported Family History Extensive for cancer Smoking History Former Smoker Social History Alcohol Use: Denies alcohol use Drug Use: Denies drug use Other Social History: Good social support, , Local resident Ambulatory Status Independent Review of Systems Constitutional: Denies: Chills, Fever, Recent wt loss Ears / Nose / Throat: Denies: Sore throat, Toothache Respiratory: Denies: Shortness of breath GI: Denies: Dysphagia, Nausea, Vomiting Musculoskeletal: Reports: Neck pain Complete sys rev & neg: except as marked. Physical Exam Initial Vital Signs Vital Signs (First) Date Time Temp Pulse Resp B/P Pulse Ox O2 Delivery O2 Flow Rate FiO2 10/21/16 14:55 37.2 80 18 147/93 97 Room Air Initial VS: Reviewed, Vital signs normal Head / Eyes: Atraumatic, Normocephalic Respiratory: Breath sounds normal, Clear to auscultation, No respiratory distress Cardiovascular: Regular rate & rhythm, Heart sounds normal, Intact distal pulses Abdomen / GI: Soft, Non-tender, No guarding, No rebound, No distention Extremities: Vascular intact, Neuro intact Skin: Warm, Dry, No cyanosis Psychiatric: Mood/affect normal, Behavior normal, Normal thought content General/Constitutional: Awake, Alert, No acute distress, Well appearing, Well developed, Well hydrated, Well nourished, Cooperative, Not toxic appearing Appearance / Presentation: Positive: Uncomfortable Neck: Atraumatic, No meningismus, No midline vertebral tend, Thyroid NL, No tracheal deviation Tender paraspinous muscles bilaterally with palpable paraspinous spasm, increased on left 1 cm node over the left posterior margin Neurologic: Oriented X3, Speech NL, No motor deficits, No sensory deficits, CN II - XII intact, Cerebellar NL, Memory NL ENT: Atraumatic, Airway patent, Mucous membranes moist, No pooling of secretions, No trismus, No facial swelling Mouth: Negative: Tongue abnormal Hypertrophy of the gingival mucousa LYMPHATIC: Tiny left axillary node Interpretation & Diagnostics Lab Results Interpretation Result Diagram: 10/21/16 1610 Test 10/21/16 16:10 White Blood Count 7.8th/mm3 (3.8-10.1) Red Blood Count 4.39mil/mm3 (3.90-5.20) Hemoglobin 13.7g/dL (12.0-15.6) Hematocrit 39.8% (35.0-46.0) Mean Corpuscular Volume 90.7fL (81-100) Mean Corpuscular Hemoglobin 31.2pg (27.0-35.0) Mean Corpuscular Hemoglobin Concent 34.4% (32.0-37.0) Red Cell Distribution Width 12.9% (12.3-15.4) Platelet Count 376bil/L (150-400) Neutrophils (%) (Auto) 70.1% (40-74) Lymphocytes (%) (Auto) 21.8% (14-46) Monocytes (%) (Auto) 5.7% (4-12) Eosinophils (%) (Auto) 1.7% (0-5) Basophils (%) (Auto) 0.6% (0-3) Re-Eval/Medical Decision Med Decision/Clinical Course This is a 56-year-old male who is otherwise healthy who presents to the ED for left-sided neck pain starting yesterday and found to have cervical adenopathy with just a single lymph node. She does not have any other focal symptoms except for decreased range of motion due to neck pain which is helped with massage, but unrelieved with ibuprofen and Tylenol. She is quite tender at the site of lymph node does have paraspinal muscle spasm, otherwise physical exam is unremarkable. There does not seem to be an emergent process going on at this time including deep space abscess. CBC was unremarkable. She should follow up with her primary care physician in 1 to 2 weeks if this is persistent. Cyclobenzaprine was given to help with muscle spasms. Source of Hx: Old records Counseled Regarding: Diagnosis, Need for follow-up, When/why to return to ED Discharge & Departure Primary Impression: Lymphadenopathy of left cervical region Disposition: Home Discharge Condition All VS Reviewed: Yes Condition: Stable Patient Instructions: Lymphadenopathy (ED) Additional Instructions: Follow up with your primary care physician in 1-2 weeks if symptoms persist. Referrals: Raegan Panda MD ED Scribe Statement Portions of this note were transcribed by Cyrus Mendes. I, Dr. Anaya, personally performed the history, physical exam and medical decision-making; I reviewed and confirmed the accuracy of the information in the transcribed note. Attending Statement Seen with Dr Smith on 10/21. Debra with above, note HTN at triage resolved. copies to: Raegan Panda MD, Donald L MD Oct 21, 2016 15:13 CYRUS EMNDES Oct 21, 2016 15:20 Gab Smith DO Oct 21, 2016 15:57
[2016-10-21 16:14] LABS: BASOPHILS % (AUTO) 0.6 % (0-3); EOSINOPHILS % (AUTO) 1.7 % (0-5); MONOCYTES % (AUTO) 5.7 % (4-12); Mean Corpuscular Hemoglobin 31.2 pg (27.0-35.0); Mean Corpuscular Volume 90.7 fL (81-100); NEUTROPHILS % (AUTO) 70.1 % (40-74); Platelet Count 376 bil/L (150-400)
[2016-10-21] MEDS ORDERED: CYCL5TAB PO (17:11)
[2016-10-21 17:41] VITALS: BP 123/83; PULSE 87; RESP 14; O2SAT 99
== END 2016-10-21 17:40 | disposition home or self-care (01) ==
LOC: SED 14:52
DX: R59.1 Generalized enlarged lymph nodes (principal); Z87.891 Personal history of nicotine dependence; Z88.5 Allergy status to narcotic agent